=== PATIENT | male | born 1990 | race Caucasian/White ===

== ENCOUNTER 2019-02-01 09:22 | Inpatient (IN) | payer OTHER, SELFPAY ==
[2019-01-29 17:12] LABS: BASOPHILS % (AUTO) 0.6 % (0.0-5.0); EOSINOPHILS % (AUTO) 1.1 % (0.0-8.0); HEMATOCRIT 38.5 % (42-54); LYMPHOCYTES % (AUTO) 15.8 % (21.0-51.0); MEAN CORPUSCULAR HGB CONC 34.6 g/dL (32.0-36.0); MEAN CORPUSCULAR VOLUME 89.6 fL (79-99); MONOCYTES % (AUTO) 4.8 % (3.0-13.0); NEUTROPHILS % (AUTO) 77.7 % (40.0-77.0); PLATELET COUNT (AUTO) 307 K/uL (130-400); RED BLOOD CELL COUNT(AUTO) 4.29 MIL/uL (4.50-6.20); RED CELL DISTRIBUTION WIDTH 12.6 % (11.0-15.5); WHITE BLOOD COUNT (AUTO) 8.1 K/uL (4.8-10.8)
[2019-01-29 17:22] LABS: CREATININE 1.1 mg/dL (0.5-1.5); POTASSIUM 4.1 mmol/L (3.5-5.1)
[2019-01-29 17:26] VITALS: BP 125/80
[~2019-02-01] VITALS: Ht 175.3 cm; Wt 110.5 kg
[2019-02-01] VITALS (29 sets, daily range): BP systolic 114–159; BP diastolic 61–94
[~2019-02-01 09:22] MED LIST: CEFAZOLIN 3GM /D5W 100ML 100 ML IV SCH; HYDR-4457 PO
[2019-02-01] MEDS ORDERED: LACTATED RINGERS 1000ML 1,000 ML IV ONE (09:30)
[2019-02-01] MEDS ORDERED: FENTANYL CITRATE PF 50 MCG/1 ML 2ML VIAL ONE ×5 (09:40→16:10)
[2019-02-01] MEDS: CEFAZOLIN SODIUM 1 GM VIAL ONE ×2 (09:44→13:45)
[2019-02-01] MEDS ORDERED: FENTANYL CITRATE PF 50 MCG/1 ML 2ML VIAL IVP SCH (10:00)
[2019-02-01] MEDS ORDERED: MIDAZOLAM HCL 1 MG/ML 2ML VIAL ONE (13:22)
[2019-02-01] MEDS ORDERED: PROPOFOL 10 MG/ML 20ML VIAL IV ONE (13:23)
[2019-02-01] MEDS ORDERED: LIDOCAINE PF 2% 5ML ABBOJECT ONE (13:23)
[2019-02-01] MEDS ORDERED: ROCURONIUM 10MG/1ML SYR 10 MG/ML ML ONE ×3 (13:27→16:07)
[2019-02-01] MEDS ORDERED: ROPIVACAINE 0.5% 5MG/ML 30ML IJ ONE ×2 (13:30→13:33)
[2019-02-01] MEDS ORDERED: CEFAZOLIN SODIUM 1 GM VIAL ONE ×3 (14:07→17:58)
[2019-02-01] MEDS ORDERED: ONDANSETRON HCL 4 MG/2 ML VIAL ONE (14:11)
[2019-02-01] MEDS ORDERED: DEXAMETHASONE SOD PHOSPHATE 10MG/ML 1ML VIAL ONE (14:11)
[2019-02-01] MEDS ORDERED: GLYCOPYRROLATE 1 MG/5 ML SYRINGE ONE ×2 (14:12→16:08)
[2019-02-01] MEDS ORDERED: NEOSTIGMINE 5MG/5ML SYR IV ONE ×2 (14:12→16:08)
[2019-02-01] MEDS ORDERED: KETOROLAC TROMETHAMINE 30MG/ML ONE (17:25)
[2019-02-01] MEDS ORDERED: SODIUM CHLORIDE 0.9% 1000ML 1,000 ML IV SCH (17:57)
[2019-02-01] MEDS ORDERED: POTASSIUM CHLORIDE 20 MEQ ERTAB PO PRN (18:00)
[2019-02-01] MEDS ORDERED: DIPHENHYDRAMINE HCL 25 MG CAPSULE PO PRN (18:00)
[2019-02-01] MEDS ORDERED: POTASSIUM CHLORIDE 10% ELIXIR 20 MEQ/15 ML UDCUP PO PRN (18:00)
[2019-02-01] MEDS ORDERED: DiphenhydrAMINE HCL 50 MG/ML VIAL IVP PRN (18:00)
[2019-02-01] MEDS ORDERED: LIDOCAINE HCL-MPF 1% 2ML VIAL IVP PRN (18:00)
[2019-02-01] MEDS ORDERED: POTASSIUM CHLORIDE 20MEQ/100ML 100 ML IV PRN (18:00)
[2019-02-01] MEDS ORDERED: MEPERIDINE-PF 25 MG/ML SYG ONE ×2 (18:11→18:22)
--- NOTE | 2019-02-01 19:45 | NUR ---
POST-OP PT ARRIVED FROM PACU VIA BED. AWAKE, ALERT AND ORIENTED X 3. VITALS WNL. PATENT IV NOTED TO LEFT AC WITH FLUIDS RUNNING. PT EXPERIENCING MODERATE PAIN TO RIGHT ANKLE. ELEVATED RIGHT ANKLE ON 2 BLANKETS AND 1 PILLOW, WILL MEDICATE IN 45 MIN PT RECEIVED DEMEROL IN PACU.
[2019-02-01] MEDS: ENOXAPARIN SODIUM 40 MG/0.4 ML SYRINGE SQ SCH (21:00)
[2019-02-01] MEDS: HYDROCODONE/ACETAMINOPHEN 5/325 MG TAB PO PRN (21:04)
[2019-02-01] MEDS: FAMOTIDINE 20MG TAB 20 MG TAB PO SCH (21:05)
[2019-02-01] MEDS: KETOROLAC TROMETHAMINE 15MG/ML IV PRN (23:05)
[2019-02-01] MEDS: CEFAZOLIN 3GM /D5W 100ML 100 ML IV SCH (23:05)
[2019-02-02] VITALS (7 sets, daily range): BP systolic 105–166; BP diastolic 48–92
[2019-02-02] MEDS: KETOROLAC TROMETHAMINE 15MG/ML IV PRN (05:18)
[2019-02-02] MEDS: CEFAZOLIN 3GM /D5W 100ML 100 ML IV SCH (06:16)
[2019-02-02] MEDS: HYDROCODONE/ACETAMINOPHEN 5/325 MG TAB PO PRN ×2 (06:22→11:45)
[2019-02-02] MEDS: ENOXAPARIN SODIUM 40 MG/0.4 ML SYRINGE SQ SCH (09:04)
[2019-02-02] MEDS: POLYETHYLENE GLYCOL 3350 17 GM POWD.PACK PO SCH (09:04)
[2019-02-02] MEDS: FAMOTIDINE 20MG TAB 20 MG TAB PO SCH ×2 (09:04→20:11)
[2019-02-02] MEDS ORDERED: MORPHINE SULFATE 2 MG/ML 1ML SYG IVP PRN (09:15)
[2019-02-02] MEDS ORDERED: MORPHINE SULFATE 2 MG/ML 1ML SYG ONE (09:16)
[2019-02-02] MEDS ORDERED: HYDROMORPHONE PCA 10 MG/50 ML 50 ML IV PRN (13:15)
[2019-02-02] MEDS ORDERED: NALOXONE HCL 0.4 MG/1 ML ML IVP PRN (13:15)
[2019-02-02] MEDS: HYDROMORPHONE PCA 10 MG/50 ML 50 ML IV PRN (14:16)
--- NOTE | 2019-02-02 15:04 | NUR ---
DCP CM met with pt discussed dc plans. Pt is independent prior to admission, live at home with spouse. Denies any equipments/services. Pt feels safe to go back home, still drives, spouse able to assist with transportation and needs as necessary. DC plan to home once stable. Pt given crutches by PT today during PT eval and treat. CM to cont to follow up. Addendum: 02/02/19 at 1505 by RIGO PETERS LVN CM Amended: Links added.
[2019-02-03 03:49] VITALS: BP 120/72
[2019-02-03] MEDS: HYDROMORPHONE PCA 10 MG/50 ML 50 ML IV PRN (03:51)
[2019-02-03 07:45] VITALS: BP 118/69
[2019-02-03] MEDS ORDERED: ASPI-1012 PO (10:39)
[2019-02-03] MEDS ORDERED: HYDR-4457 PO (10:39)
[2019-02-03] MEDS: FAMOTIDINE 20MG TAB 20 MG TAB PO SCH (10:53)
[2019-02-03] MEDS: POLYETHYLENE GLYCOL 3350 17 GM POWD.PACK PO SCH (10:54)
[2019-02-03] MEDS: ENOXAPARIN SODIUM 40 MG/0.4 ML SYRINGE SQ SCH (10:54)
[2019-02-03 11:27] VITALS: BP 139/78
[2019-02-03 16:27] VITALS: BP 119/71
[2019-02-03] MEDS: HYDROCODONE/ACETAMINOPHEN 5/325 MG TAB PO PRN (16:56)
[2019-02-03 19:18] VITALS: BP 116/53
--- NOTE | 2019-02-03 20:20 | NUR ---
PT HAD FALL IN BATHROOM PT HAD AN UNWITNESSED FALL IN THE BATHROOM. STATES SHE DID WITNESS PT'S FALL. STATES PT WAS USING CRUTCHES WHEN PT SLIPPED IN BATHROOM. STATES PT FELL TO FLOOR ONTO BUTTOCKS. STATES THAT NEVER PUT RIGHT FOOT DOWN ON FLOOR. STATES PT KEPT RIGHT LEG UP IN THE AIR AT ALL TIMES DURING FALL. WITH THE ASSISTANCE OF ANOTHER PCP, WE PICKED UP PT FROM UNDER ARMS AND PLACED PT INTO CHAIR. ASSISTED PT BACK INTO BED. PT'S RIGHT TOES CONTINUES TO HAVE GOOD CAP REFILL OF <3 SECS. RIGHT TOES PINK IN COLOR AND WARM TO TOUCH. RIGHT PT DOES REVEAL AN UNOPENED ABRASION TO RIGHT TRUNK AREA THAT MEASURES APPROXIMATELY 3" X 1". PT STATE HE FEELS OK BUT IN PAIN TO RIGHT ANKLE. INFORMED GALO THE DIRECTOR. DR. SUAREZ MADE AWARE OF PT'S FALL. DR SUAREZ STATED TO DISCHARGE PT DESPITE THE FALL IF PT WAS OK. PT'S VITAL SIGNS FOLLOWED: P 100 R 17 BP 126/74 T 97.1. WILL CONT TO MONITOR PTS STATUS.
--- NOTE | 2019-02-03 20:35 | NUR ---
PT DISCHARGED PT GIVEN DISCHARGED INSTRUCTIONS. PT AND VERBALIZED AN UNDERSTANDING. IV REMOVED WITH CATH INTACT. PT'S RIGHT TOES WITH CAP REFILL < 3 SECS, PINK IN COLOR AND WARM TO TOUCH. PT TAKEN VIA SC TO LOBBY FOR DISCHARGE.
[2019-02-03] MEDS: KETOROLAC TROMETHAMINE 15MG/ML IV PRN (20:48)
== END 2019-02-03 21:30 | disposition home or self-care (01) | DRG 494 ==
LOC: DAH 09:22 → OBSVTOIN 09:23 → DAH 09:23 → DAHIP 09:23 → 4BH 19:45
PROVIDERS: ADMIT Orthopaedic Surgery; ATTEND Orthopaedic Surgery
PROC: 0QSJ04Z Reposition Right Fibula with Internal Fixation Device, Open Approach (ICD-10-PCS; principal; 2019-02-01 13:15)
PROC: 0QSG04Z Reposition Right Tibia with Internal Fixation Device, Open Approach (ICD-10-PCS; 2019-02-01 13:15)
DX: S82.851A Displaced trimalleolar fracture of right lower leg, initial encounter for closed fracture (principal); F14.90 Cocaine use, unspecified, uncomplicated; F17.200 Nicotine dependence, unspecified, uncomplicated; Y93.89 Activity, other specified; Y92.89 Other specified places as the place of occurrence of the external cause; Y99.8 Other external cause status; Z82.49 Family history of ischemic heart disease and other diseases of the circulatory system
CPT/HCPCS: 36415; 73610; 80048; 85025; 97039; A4218; G0378; J0690; J1100; J1170; J1650; J1885; J2001; J2175; J2250; J2405; J2704; J2710; J2795; J3010; J3490; J7030; J7120

== ENCOUNTER 2023-08-08 21:14 | Emergency (ER) | payer OTHER ==
[~2023-08-08] VITALS: Ht 175.3 cm; Wt 118.8 kg
[~2023-08-08 21:14] MED LIST changes: +ASPI-1012 PO; -CEFAZOLIN 3GM /D5W 100ML 100 ML IV SCH
[2023-08-08] MEDS ORDERED: 0.9%NACL 1000ML 1,000 ML IV ONE (21:30)
[2023-08-08] MEDS ORDERED: ONDANSETRON 4MG INJ IVP ONE (21:30)
[2023-08-08] MEDS ORDERED: MORPHINE 4 MG SYG IVP ONE (21:30)
[2023-08-08 22:09] LABS: BASOPHILS # (AUTO) 0.04 K/uL (0.00-0.20); BASOPHILS % (AUTO) 0.6 % (0.0-5.0); EOSINOPHILS # (AUTO) 0.05 K/uL (0.00-0.70); EOSINOPHILS % (AUTO) 0.7 % (0.0-8.0); HEMATOCRIT 45.4 % (42-54); IMMATURE GRANULOCYTE ABSOLUTE 0.03 K/uL (0-1); LYMPHOCYTES % (AUTO) 28.3 % (21.0-51.0); MEAN CORPUSCULAR HEMOGLOBIN 30.4 pg (27.0-33.0); MEAN CORPUSCULAR HGB CONC 33.3 g/dL (32.0-36.0); MEAN CORPUSCULAR VOLUME 91.5 fL (79-99); MONOCYTES # (AUTO) 0.9 K/uL (0.1-1.0); MONOCYTES % (AUTO) 12.5 % (3.0-13.0); NEUTROPHILS % (AUTO) 57.5 % (40.0-77.0); PLATELET COUNT (AUTO) 300 K/uL (130-400); RED BLOOD CELL COUNT(AUTO) 4.96 MIL/uL (4.50-6.20); RED CELL DISTRIBUTION WIDTH 12.8 % (11.0-15.5)
[2023-08-08 22:28] LABS: CREATININE 1.2 mg/dL (0.5-1.5); POTASSIUM 4.2 mmol/L (3.5-5.1)
[2023-08-08 22:32] LABS: ALBUMIN 3.7 g/dL (3.5-5.0); BILIRUBIN,TOTAL 0.3 mg/dL (0.2-1.0); TOTAL PROTEIN, SERUM 7.9 g/dL (6.0-8.3)
[2023-08-08] MEDS ORDERED: IOHEXOL 350 MG/ML 100ML INFUS..BTL IV ONE (22:48)
[2023-08-08] MEDS ORDERED: SOLU-MEDROL 125MG VIAL IVP ONE (23:30)
[2023-08-08] MEDS ORDERED: FAMOTIDINE 20MG VIAL IV ONE ×2 (23:30)
[2023-08-08] MEDS ORDERED: DiphenhydrAMINE HCL 50 MG/ML VIAL IV ONE ×2 (23:30)
[2023-08-09 00:06] VITALS: BP 118/71; PULSE 81; RESP 18; O2SAT 100
== END 2023-08-09 00:13 | disposition home or self-care (01) ==
LOC: EDH 21:14
DX: K52.9 Noninfective gastroenteritis and colitis, unspecified (principal); Z79.82 Long term (current) use of aspirin; Z79.899 Other long term (current) drug therapy; Z98.890 Other specified postprocedural states; Z88.8 Allergy status to other drugs, medicaments and biological substances
CPT/HCPCS: 99285; 74177; 96374; 96375; 80053; 83690; 85025; 36415; J1200; J3490; J7030; J2930; J2405; J2270; Q9967